=== PATIENT | female | born 1975 | race Hispanic/Latino ===

== ENCOUNTER 2020-10-07 18:35 | Emergency (ER) | payer OTHER ==
[~2020-10-07] VITALS: Ht 157.5 cm; Wt 67.1 kg
[2020-10-07 19:35] VITALS: BP 130/61
[2020-10-07] MEDS ORDERED: KETOROLAC 60 MG VIAL (30MG/ML) IM ONE (20:00)
[2020-10-07] MEDS ORDERED: ORPHENADRINE CITRATE 30 MG/ML ML IM ONE (20:00)
[2020-10-07] MEDS ORDERED: CYCL10TA7 PO (21:08)
[2020-10-07] MEDS ORDERED: MELO7.5T12 PO (21:08)
== END 2020-10-07 21:26 | disposition home or self-care (01) ==
LOC: EDH 18:35
DX: S29.012A Strain of muscle and tendon of back wall of thorax, initial encounter (principal); M62.838 Other muscle spasm; V49.59XA Passenger injured in collision with other motor vehicles in traffic accident, initial encounter; Y93.89 Activity, other specified; Y92.89 Other specified places as the place of occurrence of the external cause; Y99.8 Other external cause status
CPT/HCPCS: 72040; 81025; 96372 ×2; 99284; J1885; J2360